=== PATIENT | female | born 1990 | race Caucasian/White ===

== ENCOUNTER 2017-08-29 21:32 | Emergency (ER) | payer OTHER ==
[~2017-08-29 21:32] MED LIST: AMOX500T PO; Z.0.BCPILL PO; ZOFR4TAB3 SL
--- NOTE | 2017-08-29 22:46 | PD ---
HPI Chief Complaint Just did not feel good today Date Seen: August 29, 2017 Time Seen: 22:40 Travel History International Travel<30 Days: No Contact w/Intl Traveler<30Days: No Known Affected Area: No History of Present Illness HPI 27-year-old white female [address] Melton for care and presents complaining today of hot flashes and nausea with no vomiting, no bleeding, leakage, or contractions. The patient states she feels better now. NST is reactive no contractions Weeks Gestation: 36 Para: 0 : 2 History Obstetric History Obstetric History 1 early loss Social History Alcohol Use: No Tobacco Use: No Substance Abuse: No Allergies-Medications (Allergen,Severity, Reaction): Coded Allergies: No Known Allergies (Unverified , 05/30/14) Home Meds Active Scripts Ondansetron (Zofran ODT) 4 Mg Tab, 4 MG SL QID Y for NAUSEA OR VOMITING, #10 TAB FOR NAUSEA/VOMITING Prov:Chula Rodriguez MD 05/30/14 Reported Medications Amoxicillin (Amoxicillin) Unknown Strength Cap, PO TID, CAP 05/30/14 Miscellaneous ( Control Pills) Tab, 1 TAB PO HS, TAB 05/30/14 Review of Systems General / Constitutional: No: Fever, Weight Gain, Chills, Other Eyes: No: Diploplia, Blurred Vision, Visual changes, Pain, Photophobia HENT: No: Headaches, Vertigo, Lightheadedness Cardiovascular: No: Irregular Rhythm, Chest Pain or Discomfort, Palpitations, Tachycardia, Syncope, Varicosities, Edema, Cyanosis Respiratory: No: Cough, Short of Breath, Other Gastrointestinal: No: Nausea, Vomiting, Diarrhea Genitourinary: No: Decreased Urinary Output, Oliguria Musculoskeletal: No: Limited ROM, Weakness, Cramping, Edema, Pain Skin: No Rash, No Itching, No Dryness, No Lumps, No Change in Pigmentation, No Change in Nails, No Alopecia, No Lesions Neurologic: No: Weakness, Dizziness, Syncope, Focal Abnormalities, Coordination Problem, Headache, Slurred Speech, Seizures Psychiatric: No: Depression, Suicidal Ideations, Homicidal Ideation Endocrine: No: Heat Intolerance, Cold Intolerance, Polydipsia, Polyuria, Other Physical Exam Narrative GENERAL: Well-nourished, well-developed patient. SKIN: Warm and dry. HEAD: Normocephalic and atraumatic. EYES: No scleral icterus. No injection or drainage. ENT: No nasal drainage noted. Mucous membranes pink. Airway patent. NECK: Supple, trachea midline. No JVD. CARDIOVASCULAR: Regular rate and rhythm without murmurs, gallops, or rubs. RESPIRATORY: Breath sounds equal bilaterally. No accessory muscle use. BREASTS: Bilateral exam showed no masses , no retractions, no nipple discharge. ABDOMEN/GI: Abdomen soft, non-tender, bowel sounds present, no rebound, no guarding Gravid to [-36] weeks size Fundal Height: [-36] GENITOURINARY: External Genitalia: intact and normal in appearance Membranes: [intact ] Uterine Contractions: [none-] FHT's: Category: [1-] Baseline: [-133] Reactive: [R-] Variability: [-mod] Decels: [-0] EXTREMITIES: No cyanosis or edema. BACK: Nontender without obvious deformity. No CVA tenderness. NEUROLOGICAL: Awake and alert. Motor and sensory grossly within normal limits. Five out of 5 muscle strength in all muscle groups. Normal speech. Data Data Labs Urine dip on OB ED is negative MDM Interpretation(s) 27-year-old white female at 36 weeks who presents complaining of hot flashes and nausea today. She had no vomiting. She felt she describes a just not well at all for a while and then that resolved and now she feels okay, NST is reactive, no contractions seen. Urinalysis negative Plan Plan to discharge patient home to observation and she will hydrate at home, use Tylenol as needed and heating pad or hot bath for symptom relief. She is to follow-up with Dr. Melton for any more issues Diagnosis Diagnosis: Primary Impression: Malaise Additional Impressions: Hot flashes Nausea alone 36 weeks gestation of Disposition: 01 DISCHARGE HOME Condition: Stable Demetrius Chua II, MD August 29, 2017 22:46
== END 2017-08-29 23:07 | disposition home or self-care (01) ==
LOC: HOBED 21:32
DX: O26.893 Other specified pregnancy related conditions, third trimester (principal); R11.0 Nausea; Z3A.36 36 weeks gestation of pregnancy
CPT/HCPCS: 59025

== ENCOUNTER 2017-09-09 11:23 | Emergency (ER) | payer OTHER ==
[2017-09-09 12:07] LABS: BACTERIA, URINE OCC /hpf; BILIRUBIN, URINE NEG (NEG); BLOOD, URINE NEG (NEG); GLUCOSE,URINE NEG (NEG); KETONE, URINE NEG (NEG); NITRITE,URINE NEG (NEG); PH, URINE 5.5 (5.0-8.5); SQUAMOUS EPITHELIAL CELL URINE 15 /hpf (0-5); URINE COLOR YELLOW (YELLW/STRAW); URINE LEUKOCYTE ESTERASE MOD (NEG)
[2017-09-09 12:08] LABS: AUTOMATED NEUTROPHIL # 6.1 TH/MM3 (1.8-7.7); BASOPHIL % 0.2 % (0.0-2.0); EOSINOPHIL % 0.6 % (0.0-4.0); HEMATOCRIT 38.6 % (35.0-46.0); HEMOGLOBIN 13.3 GM/DL (11.6-15.3); LYMPH % 17.7 % (9.0-44.0); LYMPHOCYTE # 1.5 TH/MM3 (1.0-4.8); MEAN CELL VOLUME 89.5 FL (80.0-100.0); MEAN CORPUSCULAR HEMOGLOBIN 30.8 PG (27.0-34.0); MEAN CORPUSCULAR HGB CONC 34.4 % (32.0-36.0); MEAN PLATELET VOLUME 7.8 FL (7.0-11.0); MONO % 7.1 % (0.0-8.0); MONOCYTE # 0.6 TH/MM3 (0-0.9); NEUT % 74.4 % (16.0-70.0); PLATELET COUNT 263 TH/MM3 (150-450); RED BLOOD COUNT 4.31 MIL/MM3 (4.00-5.30); RED CELL DISTRIBUTION WIDTH 13.3 % (11.6-17.2); WHITE BLOOD COUNT 8.2 TH/MM3 (4.0-11.0)
[2017-09-09 12:23] LABS: ALBUMIN 2.8 GM/DL (3.4-5.0); AST (GOT) 17 U/L (15-37); BICARBONATE 20.2 MEQ/L (21.0-32.0); BLOOD UREA NITROGEN 9 MG/DL (7-18); CHLORIDE 107 MEQ/L (98-107); CREATININE 0.82 MG/DL (0.50-1.00); GLOMERULAR FILTRATION RATE 85 ML/MIN (>89); GLUCOSE,RANDOM 108 MG/DL (74-106); SODIUM (NA) 137 MEQ/L (136-145)
[2017-09-09 12:24] LABS: ALT (GPT) 25 U/L (10-53)
[2017-09-09 12:27] LABS: ALKALINE PHOSPHATASE 132 U/L (45-117); TOTAL BILIRUBIN ADULT 0.4 MG/DL (0.2-1.0); TOTAL PROTEIN 6.7 GM/DL (6.4-8.2)
--- NOTE | 2017-09-09 13:18 | PD ---
HPI Chief Complaint hypertension in office Date Seen: September 09, 2017 Time Seen: 13:00 Travel History International Travel<30 Days: No Contact w/Intl Traveler<30Days: No Known Affected Area: No History of Present Illness HPI 27 yo at 37 6/7 weeks with BP in office of 140/100 no PRAKASH or visual disturbance. She is doing well and has had good PNC Weeks Gestation: 37 Para: 0 : 1 Last Menstrual Period: September 09, 2017 History Past Medical History Medical History: Denies Significant Hx Past Surgical History Surgical History: No Previous Surgery Family History Family History: Negative Social History Alcohol Use: No Tobacco Use: No Substance Abuse: No Allergies-Medications (Allergen,Severity, Reaction): Coded Allergies: No Known Allergies (Unverified , 05/30/14) Home Meds Active Scripts Ondansetron (Zofran ODT) 4 Mg Tab, 4 MG SL QID Y for NAUSEA OR VOMITING, #10 TAB FOR NAUSEA/VOMITING Prov:Chula Rodriguez MD 05/30/14 Reported Medications Amoxicillin (Amoxicillin) Unknown Strength Cap, PO TID, CAP 05/30/14 Miscellaneous ( Control Pills) Tab, 1 TAB PO HS, TAB 05/30/14 Review of Systems Except as stated in HPI: all other systems reviewed are Neg Physical Exam Narrative GENERAL: Well-nourished, well-developed patient. SKIN: Warm and dry. HEAD: Normocephalic and atraumatic. EYES: No scleral icterus. No injection or drainage. ENT: No nasal drainage noted. Mucous membranes pink. Airway patent. NECK: Supple, trachea midline. No JVD. CARDIOVASCULAR: Regular rate and rhythm without murmurs, gallops, or rubs. RESPIRATORY: Breath sounds equal bilaterally. No accessory muscle use. BREASTS: Bilateral exam showed no masses , no retractions, no nipple discharge. ABDOMEN/GI: Abdomen soft, non-tender, bowel sounds present, no rebound, no guarding Gravid to 37 weeks size Fundal Height: [-] GENITOURINARY: External Genitalia: intact and normal in appearance BUS glands: [-] Cervix: [-] Dilatation: ft Effacement: [-] Station: -2 Presentation: [-] Membranes: [intact Uterine Contractions: [-] FHT's: Category: 1 Baseline: [-] Reactive: [-] Variability: [-] Decels: [-] EXTREMITIES: No cyanosis or edema. BACK: Nontender without obvious deformity. No CVA tenderness. NEUROLOGICAL: Awake and alert. Motor and sensory grossly within normal limits. Five out of 5 muscle strength in all muscle groups. Normal speech. Data Data Vital Signs Reviewed: Yes Orders Orders Complete Blood Count With Diff (09/09/17 11:53) Comprehensive Metabolic Panel (09/09/17 11:53) Urinalysis - C+S If Indicated (09/09/17 11:53) Group B Strep: Negative Labs Laboratory Tests Test 09/09/17 11:48 White Blood Count 8.2 Red Blood Count 4.31 Hemoglobin 13.3 Hematocrit 38.6 Mean Corpuscular Volume 89.5 Mean Corpuscular Hemoglobin 30.8 Mean Corpuscular Hemoglobin Concent 34.4 Red Cell Distribution Width 13.3 Platelet Count 263 Mean Platelet Volume 7.8 Neutrophils (%) (Auto) 74.4 Lymphocytes (%) (Auto) 17.7 Monocytes (%) (Auto) 7.1 Eosinophils (%) (Auto) 0.6 Basophils (%) (Auto) 0.2 Neutrophils # (Auto) 6.1 Lymphocytes # (Auto) 1.5 Monocytes # (Auto) 0.6 Eosinophils # (Auto) 0.0 Basophils # (Auto) 0.0 CBC Comment DIFF FINAL Differential Comment Urine Color YELLOW Urine Turbidity HAZY Urine pH 5.5 Urine Specific Bennett 1.023 Urine Protein TRACE Urine Glucose (UA) NEG Urine Ketones NEG Urine Occult Blood NEG Urine Nitrite NEG Urine Bilirubin NEG Urine Urobilinogen LESS THAN 2.0 Urine Leukocyte Esterase MOD Urine RBC 7 Urine WBC 4 Urine Squamous Epithelial Cells 15 Urine Bacteria OCC Microscopic Urinalysis Comment CULT NOT INDICATED Blood Urea Nitrogen 9 Creatinine 0.82 Random Glucose 108 Total Protein 6.7 Albumin 2.8 Calcium Level 9.0 Alkaline Phosphatase 132 Aspartate Amino Transf (AST/SGOT) 17 Alanine Aminotransferase (ALT/SGPT) 25 Total Bilirubin 0.4 Sodium Level 137 Potassium Level 3.7 Chloride Level 107 Carbon Dioxide Level 20.2 Anion Gap 10 Estimat Glomerular Filtration Rate 85 MDM Diagnosis Diagnosis: Primary Impression: 37 weeks gestation of Additional Impression: Hypertension Disposition: 01 DISCHARGE HOME Condition: Good Patient Instructions: General Instructions, Having Your Baby: The Labor Process (GEN), Movement (ED) Departure Forms: Tests/Procedures Naren Duckworth MD September 09, 2017 13:18
--- NOTE | 2017-09-09 13:19 | HHI.DCPOC ---
Discharge Care Plan Diagnosis: (1) 37 weeks gestation of Report Symptoms to Your Doctor -Temperature above 100.5 degrees -Redness, of incision or excessive or foul smelling drainage -Unusual pain or calf pain -Increased vaginal bleeding -Painful or difficulty urinating -Feelings of extreme sadness or anxiety after 2 weeks Goals to Promote Your Health * To prevent worsening of your condition and complications * To maintain your health at the optimal level Directions to Meet Your Goals Take your medications as prescribed Follow your dietary instruction Follow activity as directed Ensure plenty of rest for recovery Drink fluids for hydration Keep your appointments as scheduled Take your immunizations and boosters as scheduled If your symptoms worsen call your PCP, if no PCP go to Urgent Care Center or Emergency Room Smoking is Dangerous to Your Health. Avoid second hand smoke Call the 24-hour crisis hotline for domestic abuse at Naren Duckworth MD September 09, 2017 13:19
== END 2017-09-09 15:00 | disposition home or self-care (01) ==
LOC: HOBED 11:23
DX: O16.3 Unspecified maternal hypertension, third trimester (principal); Z3A.37 37 weeks gestation of pregnancy
CPT/HCPCS: 36415; 59025; 80053; 81001; 85025

== ENCOUNTER 2017-09-23 08:56 | Inpatient (IN) | payer OTHER ==
[~2017-09-23] VITALS: Ht 175.3 cm; Wt 100.0 kg
[2017-09-23] MEDS ORDERED: LACTATED RINGER'S 1000 ML INJ 1,000 ML IV SCH (09:14)
[2017-09-23] MEDS ORDERED: LACTATED RINGER'S 1000 ML INJ 1,000 ML IV PRN (09:14)
[2017-09-23] MEDS ORDERED: LIDOCAINE HCL 1% 50 ML VIAL I-DERMAL PRN (09:15)
[2017-09-23] MEDS ORDERED: OXYTOCIN 30 UNITS-500ML PREMIX 500 ML IV PRN (09:15)
[2017-09-23] MEDS ORDERED: SODIUM CHLORID 0.9% 500 ML INJ 500 ML IV PRN (09:15)
[2017-09-23] MEDS ORDERED: OXYTOCIN 30 UNITS-500ML PREMIX 500 ML IV ONE (09:15)
[2017-09-23] MEDS ORDERED: MINERAL OIL 10 ML VIAL TOPICAL PRN (09:15)
[2017-09-23] MEDS ORDERED: LIDOCAINE HCL 1% 50 ML VIAL INFIL PRN (09:15)
[2017-09-23] MEDS ORDERED: CITRIC ACID-SODIUM CITRATE LIQ 30 ML UDC PO SCH (09:15)
[2017-09-23] MEDS ORDERED: SODIUM CHLOR 0.9% 1000 ML INJ 1,000 ML IV PRN (09:34)
[2017-09-23 10:12] LABS: AUTOMATED NEUTROPHIL # 6.1 TH/MM3 (1.8-7.7); BASOPHIL % 0.4 % (0.0-2.0); EOSINOPHIL % 0.5 % (0.0-4.0); HEMATOCRIT 37.2 % (35.0-46.0); HEMOGLOBIN 13.4 GM/DL (11.6-15.3); LYMPH % 19.7 % (9.0-44.0); LYMPHOCYTE # 1.6 TH/MM3 (1.0-4.8); MEAN CELL VOLUME 88.6 FL (80.0-100.0); MEAN CORPUSCULAR HEMOGLOBIN 31.9 PG (27.0-34.0); MEAN PLATELET VOLUME 8.4 FL (7.0-11.0); MONOCYTE # 0.6 TH/MM3 (0-0.9); NEUT % 72.4 % (16.0-70.0); PLATELET COUNT 249 TH/MM3 (150-450); RED BLOOD COUNT 4.19 MIL/MM3 (4.00-5.30); RED CELL DISTRIBUTION WIDTH 13.2 % (11.6-17.2); WHITE BLOOD COUNT 8.4 TH/MM3 (4.0-11.0)
[2017-09-23 10:23] LABS: AMORPHOUS SEDIMENT, URINE RARE; BACTERIA, URINE OCC /hpf; BILIRUBIN, URINE NEG (NEG); BLOOD, URINE NEG (NEG); GLUCOSE,URINE NEG (NEG); KETONE, URINE NEG (NEG); MUCUS URINE FEW /lpf (OCC); NITRITE,URINE NEG (NEG); PH, URINE 5.5 (5.0-8.5); SQUAMOUS EPITHELIAL CELL URINE 8 /hpf (0-5); TRANSITIONAL EPI CELLS, URINE <1 /hpf; URINE COLOR YELLOW (YELLW/STRAW); URINE LEUKOCYTE ESTERASE SMALL (NEG)
[2017-09-23] MEDS ORDERED: fentaNYL 2MCG-BUPIV 0.125% INJ 150 ML EPIDURAL ONE (14:29)
[2017-09-23] MEDS ORDERED: ePHEDrine/NS 25 MG/5 ML SYRINGE ONE (14:29)
[2017-09-23] MEDS ORDERED: LIDOCAINE 1.5%/EPINEPHrine 1:200,000 PF 5 ML AMP ONE (14:32)
[2017-09-23] MEDS ORDERED: ePHEDrine/NS 25 MG/5 ML SYRINGE IV PUSH PRN (15:45)
[2017-09-23] MEDS ORDERED: NO SYSTEM NARCOTICS PRN (15:45)
[2017-09-23] MEDS ORDERED: fentaNYL 2MCG-BUPIV 0.125% 150 ML EPIDURAL PRN (15:45)
[2017-09-23] MEDS ORDERED: DO NOT ADMINISTER ANTICOAGULANTS PRN (15:45)
[2017-09-23] MEDS ORDERED: DIPHTH/TETANUS/ACEL PERTUSSIS (BOOSTER) 0.5 ML VIAL/PFS IM ONE (16:00)
--- NOTE | 2017-09-23 17:14 | HHI.HP ---
HPI Chief Complaint induction at 39 weeks Date Seen: Sep 23, 2017 Time Seen: 09:00 Travel History International Travel<30 Days: No Contact w/Intl Traveler<30Days: No Known Affected Area: No History of Present Illness HPI 27 yo WF here for induction. She is 3 cm and ok with AROM and pitocin Weeks Gestation: 39 Para: 0 : 1 History Past Medical History Medical History: Denies Significant Hx Past Surgical History Surgical History: No Previous Surgery Family History Family History: Social History Alcohol Use: No Tobacco Use: No Substance Abuse: No Allergies-Medications (Allergen,Severity, Reaction): Coded Allergies: No Known Allergies (Unverified Allergy, Unknown, 09/23/17) Home Meds Active Scripts Ondansetron (Zofran ODT) 4 Mg Tab, 4 MG SL QID Y for NAUSEA OR VOMITING, #10 TAB FOR NAUSEA/VOMITING Prov:Chula Rodriguez MD 05/30/14 Reported Medications Amoxicillin (Amoxicillin) Unknown Strength Cap, PO TID, CAP 05/30/14 Miscellaneous ( Control Pills) Tab, 1 TAB PO HS, TAB 05/30/14 Review of Systems Except as stated in HPI: all other systems reviewed are Neg Physical Exam Narrative GENERAL: Well-nourished, well-developed patient. SKIN: Warm and dry. HEAD: Normocephalic and atraumatic. EYES: No scleral icterus. No injection or drainage. ENT: No nasal drainage noted. Mucous membranes pink. Airway patent. NECK: Supple, trachea midline. No JVD. CARDIOVASCULAR: Regular rate and rhythm without murmurs, gallops, or rubs. RESPIRATORY: Breath sounds equal bilaterally. No accessory muscle use. BREASTS: Bilateral exam showed no masses , no retractions, no nipple discharge. ABDOMEN/GI: Abdomen soft, non-tender, bowel sounds present, no rebound, no guarding Gravid to 39 weeks size Fundal Height: [-] GENITOURINARY: External Genitalia: intact and normal in appearance BUS glands: [-] Cervix: [-] Dilatation: 3 Effacement: [-] Station: [-] Presentation: vtx Membranes: Uterine Contractions: [-] FHT's: Category: 1 Baseline: [-] Reactive: [-] Variability: [-] Decels: [-] EXTREMITIES: No cyanosis or edema. BACK: Nontender without obvious deformity. No CVA tenderness. NEUROLOGICAL: Awake and alert. Motor and sensory grossly within normal limits. Five out of 5 muscle strength in all muscle groups. Normal speech. Caprini VTE Risk Assessment Caprini VTE Risk Assessment: No/Low Risk (score <= 1) Caprini Risk Assessment Model Point Value = 1 Point Value = 2 Point Value = 3 Point Value = 5 Age 41-60 Minor surgery BMI > 25 kg/m2 Swollen legs Varicose veins or History of unexplained or recurrent spontaneous Oral contraceptives or hormone replacement Sepsis (< 1 month) Serious lung disease, including pneumonia (< 1 month) Abnormal pulmonary function Acute myocardial infarction Congestive heart failure (< 1 month) History of inflammatory bowel disease Medical patient at bed rest Age 61-74 Arthroscopic surgery Major open surgery (> 45 min) Laparoscopic surgery (> 45 min) Malignancy Confined to bed (> 72 hours) Immobilizing plaster cast Central venous access Age >= 75 History of VTE Family history of VTE Factor V Leiden Prothrombin [id number] Lupus anticoagulant Anticardiolipin antibodies Elevated serum homocysteine Heparin-induced thrombocytopenia Other congenital or acquired thrombophilia Stroke (< 1 month) Elective arthroplasty Hip, pelvis, or leg fracture Acute spinal cord injury (< 1 month) Prophylaxis Regimen Total Risk Factor Score Risk Level Prophylaxis Regimen 0-1 Low Early ambulation 2 Moderate Order ONE of the following: *Sequential Compression Device (SCD) *Heparin 5000 units SQ BID 3-4 Higher Order ONE of the following medications: *Heparin 5000 units SQ TID *Enoxaparin/Lovenox 40 mg SQ daily (WT < 150 kg, CrCl > 30 mL/min) *Enoxaparin/Lovenox 30 mg SQ daily (WT < 150 kg, CrCl > 10-29 mL/min) *Enoxaparin/Lovenox 30 mg SQ BID (WT < 150 kg, CrCl > 30 mL/min) AND/OR *Sequential Compression Device (SCD) 5 or more Highest Order ONE of the following medications: *Heparin 5000 units SQ TID (Preferred with Epidurals) *Enoxaparin/Lovenox 40 mg SQ daily (WT < 150 kg, CrCl > 30 mL/min) *Enoxaparin/Lovenox 30 mg SQ daily (WT < 150 kg, CrCl > 10-29 mL/min) *Enoxaparin/Lovenox 30 mg SQ BID (WT < 150 kg, CrCl > 30 mL/min) AND *Sequential Compression Device (SCD) Data Data Vital Signs Reviewed: Yes Orders Orders Admit To Inpatient (09/23/17 ) Code Status (09/23/17 09:14) Vital Signs (Adult) .Per protocol (09/23/17 09:14) Heart (09/23/17 09:14) Amnioinfusion (09/23/17 09:14) Urinary Catheter Management .ONCE (09/23/17 09:14) Lactated Ringer's 1000 Ml Inj (Lr 1000 M (09/23/17 09:14) Lactated Ringer's 1000 Ml Inj (Lr 1000 M (09/23/17 09:14) Sodium Chlorid 0.9% 500 Ml Inj (Ns 500 M (09/23/17 09:15) Sodium Chlor 0.9% 1000 Ml Inj (Ns 1000 M (09/23/17 09:34) Lidocaine 1% Inj (50 Ml) (Xylocaine 1% I (09/23/17 09:15) Citric Acid-Sodium Citrate Liq (Bicitra (09/23/17 09:15) Fentanyl Inj (Fentanyl Inj) (09/23/17 09:15) Fentanyl Inj (Fentanyl Inj) (09/23/17 09:15) Complete Blood Count With Diff (09/23/17 09:14) Hold Clot (09/23/17 09:14) Abo/Rh Blood Type (09/23/17 09:14) Urinalysis - C+S If Indicated (09/23/17 09:14) Ob/Psych Drug Screen, Urine (09/23/17 09:14) Resp Oxygen Non Rebreathe Mask (09/23/17 ) ^ Epidural / Intrathecal Infus (09/23/17 09:14) Oxytocin 30 Units-500ml Premix (Pitocin (09/23/17 09:15) Lidocaine 1% Inj (50 Ml) (Xylocaine 1% I (09/23/17 09:15) Light Mineral Oil (Muri-Lube Oil) (09/23/17 09:15) Inpatient Certification (09/23/17 ) Specimen To Be Collected PRN (09/23/17 09:14) Specimen To Be Collected PRN (09/23/17 09:14) ^ Non Stress Test (09/23/17 09:14) Response To Medication .Post New Med Administration, Reaction (09/23/17 09:14) ^ Discontinue Medication (09/23/17 09:14) Oxytocin 30 Units-500ml Premix (Pitocin (09/23/17 09:15) Diet Clear Liquid (09/23/17 Lunch) Fentanyl 2mcg-Bupiv 0.125% Inj (Fentanyl (09/23/17 14:29) Ephedrine/Ns 25 Mg/5 Ml Syr (Ephedrine/N (09/23/17 14:29) Lido-Epi Pf 1.5%-1:200,000 Inj (Xylocain (09/23/17 14:32) ^ Place On Chart (09/23/17 ) ^ Medication Indications (09/23/17 ) Consent (09/23/17 ) ^ No Systemic Narcotics (09/23/17 ) ^ Call Anesthesiologist (09/23/17 ) ^ Discontinue Epidural Cathete (09/23/17 ) Anticoagulant Alert (09/23/17 ) ^ Epidural Alert (09/23/17 ) Nursing Information ([facility] Nursing Inform (09/23/17 15:45) Nursing Information ([facility] Nursing Inform (09/23/17 15:45) Fentanyl Inj (Fentanyl Inj) (09/23/17 15:45) Fentanyl 2mcg-Bupiv 0.125% Inj (Fentanyl (09/23/17 15:45) Ephedrine/Ns 25 Mg/5 Ml Syr (Ephedrine/N (09/23/17 15:45) Group B Strep: Negative Labs Laboratory Tests Test 09/23/17 09:45 White Blood Count 8.4 Red Blood Count 4.19 Hemoglobin 13.4 Hematocrit 37.2 Mean Corpuscular Volume 88.6 Mean Corpuscular Hemoglobin 31.9 Mean Corpuscular Hemoglobin Concent 36.0 Red Cell Distribution Width 13.2 Platelet Count 249 Mean Platelet Volume 8.4 Neutrophils (%) (Auto) 72.4 Lymphocytes (%) (Auto) 19.7 Monocytes (%) (Auto) 7.0 Eosinophils (%) (Auto) 0.5 Basophils (%) (Auto) 0.4 Neutrophils # (Auto) 6.1 Lymphocytes # (Auto) 1.6 Monocytes # (Auto) 0.6 Eosinophils # (Auto) 0.0 Basophils # (Auto) 0.0 CBC Comment AUTO DIFF Differential Comment AUTO DIFF CONFIRMED Urine Color YELLOW Urine Turbidity HAZY Urine pH 5.5 Urine Specific Lin[place] 1.027 Urine Protein TRACE Urine Glucose (UA) NEG Urine Ketones NEG Urine Occult Blood NEG Urine Nitrite NEG Urine Bilirubin NEG Urine Urobilinogen LESS THAN 2.0 Urine Leukocyte Esterase SMALL Urine RBC 2 Urine WBC 5 Urine Squamous Epithelial Cells 8 Urine Transitional Epithelial Cells <1 Urine Amorphous Sediment RARE Urine Bacteria OCC Urine Mucus FEW Microscopic Urinalysis Comment CULT NOT INDICATED Urine Opiates Screen NEG Urine Barbiturates Screen NEG Urine Amphetamines Screen NEG Urine Benzodiazepines Screen NEG Urine Cocaine Screen NEG Urine Cannabinoids Screen NEG Assessment/Plan Problem List: (1) 39 weeks gestation of ICD Codes: Z3A.39 - 39 weeks gestation of Assessment and Plan induction with favorable Naren Rodriguez MD Sep 23, 2017 17:14
[2017-09-23] MEDS ORDERED: LIDOCAINE HCL 1% PF 30 ML VIAL ONE (20:11)
--- NOTE | 2017-09-23 20:51 | PD.OB.DELI ---
Weeks gestation: 39 Gest age assessed date: Sep 23, 2017 Gest age assessed time: 09:00 Pt started active labor?: Yes Active labor start date: Sep 23, 2017 Active labor start time: 09:00 Medical induction of labor?: No Artificial rupture of membrane: Yes Artificial ROM date: Sep 23, 2017 Artifical ROM time: 13:00 Anesthesia: Epidural Episiotomy: None Vaginal Delivery: Normal, Spontaneous Presentation: Occiput anterior Nuchal Cord: None Delayed cord clamping (45 sec): Yes Infant: Female, Single Delivery date: Sep 23, 2017 Delivery time: 20:30 One Minute : 9 Five Minute : 9 Placenta: Spontaneous delivery, Intact Laceration: Vaginal laceration, 2 deg Repair: Chromic running Estimated blood loss: 300 Naren Duckworth MD Sep 23, 2017 20:51
[2017-09-23] MEDS ORDERED: ALUMINUM/MAGNESIUM/SIMETH 30 ML CUP PO PRN (21:00)
[2017-09-23] MEDS ORDERED: ZOLPIDEM TARTRATE 5 MG TAB PO PRN (21:00)
[2017-09-23] MEDS ORDERED: SODIUM CHLORIDE 0.9% FLUSH 10 ML FLUSH IV FLUSH SCH (21:00)
[2017-09-23] MEDS ORDERED: SODIUM CHLORIDE 0.9% FLUSH 10 ML FLUSH IV FLUSH PRN (21:00)
[2017-09-23] MEDS ORDERED: ONDANSETRON ODT 4 MG TAB PO PRN (21:00)
[2017-09-23] MEDS ORDERED: OXYTOCIN 30 UNITS-500ML PREMIX 500 ML IV SCH (21:00)
[2017-09-23] MEDS: BENZOCAINE 20% TOPICAL SPRAY 60 ML CAN TOPICAL PRN (22:50)
[2017-09-23] MEDS: WITCH HAZEL 50%/GLYCERIN 12.5% 40 PAD JAR TOPICAL PRN (22:50)
[2017-09-24] MEDS: IBUPROFEN 800 MG TAB PO PRN ×3 (04:28→20:44)
--- NOTE | 2017-09-24 07:55 | HHI.OB ---
Subjective Post Day: 1 Remarks doing well Objective Vitals/I&O Intake & Output 09/24/17 09/24/17 07:00 19:00 Intake Total 500 ml Balance 500 ml Intake IV Total 500 ml Objective Remarks GENERAL: Well-nourished, well-developed patient. . ABDOMEN/GI: Abdomen soft, non-tender. Fundus: Firm, non-tender at umbilicus. GENITOURINARY: Light to moderate bleeding. EXTREMITIES: No cyanosis or edema, non-tender, without signs of DVT. Medications and IVs Current Medications Medications (Trade) Dose Ordered Sig/Carmen Route Start Time Stop Time Status Last Admin ([facility] Nursing Information) No systemic narcotics to be given except... UNSCH PRN .XX 09/23/17 15:45 09/24/17 15:44 ([facility] Nursing Information) DO NOT ADMINISTER ANY ANTICOAGUL... UNSCH PRN .XX 09/23/17 15:45 09/24/17 15:44 (NS Flush) 2 ml BID IV FLUSH 09/23/17 21:00 (NS Flush) 2 ml UNSCH PRN IV FLUSH 09/23/17 21:00 (Tylenol) 650 mg Q4H PRN PO 09/23/17 21:00 (Motrin) 800 mg Q8H PRN PO 09/23/17 21:00 09/24/17 04:28 (Americaine 20% Top Spr) 1 spray Q4H PRN TOPICAL 09/23/17 21:00 09/23/17 22:50 (Tucks Pads) 1 applic QID PRN TOPICAL 09/23/17 21:00 09/23/17 22:50 (Chaya-Colace) 2 tab Q12H PRN PO 09/23/17 21:00 (Ambien) 5 mg HS PRN PO 09/23/17 21:00 (M-M-R Ii Inj) 0.5 ml ONCE ONCE SQ 09/24/17 16:00 09/24/17 16:01 (Mag-Al Plus Susp Liq) 15 ml Q8H PRN PO 09/23/17 21:00 (Zofran Odt) 4 mg Q6H PRN PO 09/23/17 21:00 (Boostrix Inj) 0.5 ml ONCE ONCE IM 09/24/17 16:00 09/24/17 16:01 Assessment/Plan Problem List: (1) 39 weeks gestation of ICD Codes: Z3A.39 - 39 weeks gestation of (2) Spontaneous vaginal delivery ICD Codes: O80 - Encounter for full-term uncomplicated delivery Assessment and Plan doing well PP normal locNaren Del Toro MD Sep 24, 2017 07:55
--- NOTE | 2017-09-24 07:56 | HHI.DCPOC ---
Discharge Care Plan Diagnosis: (1) Spontaneous vaginal delivery Report Symptoms to Your Doctor -Temperature above 100.5 degrees -Redness, of incision or excessive or foul smelling drainage -Unusual pain or calf pain -Increased vaginal bleeding -Painful or difficulty urinating -Feelings of extreme sadness or anxiety after 2 weeks Goals to Promote Your Health * To prevent worsening of your condition and complications * To maintain your health at the optimal level Directions to Meet Your Goals Take your medications as prescribed Follow your dietary instruction Follow activity as directed Ensure plenty of rest for recovery Drink fluids for hydration Keep your appointments as scheduled Take your immunizations and boosters as scheduled If your symptoms worsen call your PCP, if no PCP go to Urgent Care Center or Emergency Room Smoking is Dangerous to Your Health. Avoid second hand smoke Call the 24-hour crisis hotline for domestic abuse at Naren Duckworth MD Sep 24, 2017 07:56
[2017-09-24] MEDS ORDERED: PERC5TAB12 PO (07:57)
[2017-09-24] MEDS: ACETAMINOPHEN 325 MG TAB PO PRN ×2 (11:09→23:48)
[2017-09-24] MEDS ORDERED: MEASLES, MUMPS, RUBELLA VACCINE 0.5 ML VIAL SQ ONE (16:00)
[2017-09-24] MEDS ORDERED: DIPHTH/TETANUS/ACEL PERTUSSIS (BOOSTER) 0.5 ML VIAL/PFS IM ONE (16:00)
[2017-09-24 20:10] VITALS: BP 114/62; PULSE 74; RESP 17; TEMP 98.9
[2017-09-24] MEDS: WITCH HAZEL 50%/GLYCERIN 12.5% 40 PAD JAR TOPICAL PRN (20:43)
[2017-09-24] MEDS: DOCUSATE SODIUM 50 MG/SENNA 8.6 MG TAB PO PRN (20:43)
[2017-09-25] MEDS: IBUPROFEN 800 MG TAB PO PRN (06:20)
[2017-09-25] MEDS ORDERED: DIPHTH/TETANUS/ACEL PERTUSSIS (BOOSTER) 0.5 ML VIAL/PFS IM ONE (08:30)
--- NOTE | 2017-09-25 11:11 | HHI.OB ---
Subjective Post Day: 2 Remarks doing well Objective Vitals/I&O Vital Signs Date Time Temp Pulse Resp B/P (MAP) Pulse Ox O2 Delivery O2 Flow Rate FiO2 09/24/17 20:10 98.9 74 17 114/62 (79) Objective Remarks GENERAL: Well-nourished, well-developed patient. . ABDOMEN/GI: Abdomen soft, non-tender. Fundus: Firm, non-tender at umbilicus. GENITOURINARY: Light to moderate bleeding. EXTREMITIES: No cyanosis or edema, non-tender, without signs of DVT. Medications and IVs Current Medications Medications (Trade) Dose Ordered Sig/Carmen Route Start Time Stop Time Status Last Admin (NS Flush) 2 ml BID IV FLUSH 09/23/17 21:00 (NS Flush) 2 ml UNSCH PRN IV FLUSH 09/23/17 21:00 (Tylenol) 650 mg Q4H PRN PO 09/23/17 21:00 09/24/17 23:48 (Motrin) 800 mg Q8H PRN PO 09/23/17 21:00 09/25/17 06:20 (Americaine 20% Top Spr) 1 spray Q4H PRN TOPICAL 09/23/17 21:00 09/23/17 22:50 (Tucks Pads) 1 applic QID PRN TOPICAL 09/23/17 21:00 09/24/17 20:43 (Chaya-Colace) 2 tab Q12H PRN PO 09/23/17 21:00 09/24/17 20:43 (Ambien) 5 mg HS PRN PO 09/23/17 21:00 (Mag-Al Plus Susp Liq) 15 ml Q8H PRN PO 09/23/17 21:00 (Zofran Odt) 4 mg Q6H PRN PO 09/23/17 21:00 Assessment/Plan Problem List: (1) 39 weeks gestation of ICD Codes: Z3A.39 - 39 weeks gestation of (2) Spontaneous vaginal delivery ICD Codes: O80 - Encounter for full-term uncomplicated delivery Assessment and Plan doing well PP normal Naren Alfonso MD Sep 25, 2017 11:11
--- NOTE | 2017-09-25 11:13 | HHI.DS ---
Admission Date Sep 23, 2017 at 08:56 Discharge Date: Sep 25, 2017 Admitting Diagnosis Diagnosis: (1) Spontaneous vaginal delivery Diagnosis: Principal ICD Codes: O80 - Encounter for full-term uncomplicated delivery Delivery Date: Sep 23, 2017 Vaginal Delivery: Normal, Spontaneous : Female, Single Brief History 27 yo WF here for induction. She is 3 cm and ok with AROM and pitocin Hospital Course doing well ready for DC home Pt Condition on Discharge: Good Discharge Disposition: Discharge Home Discharge Instructions Diet Instructions: As Tolerated, No Restrictions Activities You Can Perform: Pelvic Rest Activities to Avoid: Driving for 24 hrs Follow up Referrals: HAND PACKAGER - 2 Weeks @ [facility] with Naren Duckworth MD New Medications: Oxycodone-Acetaminophen (Percocet) 5-325 mg Tab 1-2 TAB PO Q4H PRN for PAIN, #20 TAB 0 Refills Discontinued Medications: Amoxicillin (Amoxicillin) Unknown Strength Cap Unknown Dose PO TID, CAP Miscellaneous ( Control Pills) Tab 1 TAB PO HS, TAB Ondansetron (Zofran ODT) 4 Mg Tab 4 MG SL QID PRN for NAUSEA OR VOMITING, #10 TAB FOR NAUSEA/VOMITING Naren Duckworth MD Sep 25, 2017 11:13
[2017-09-25] MEDS: DOCUSATE SODIUM 50 MG/SENNA 8.6 MG TAB PO PRN (12:36)
[2017-09-25] MEDS: ACETAMINOPHEN 325 MG TAB PO PRN (12:36)
[2017-09-25] MEDS: BENZOCAINE 20% TOPICAL SPRAY 60 ML CAN TOPICAL PRN (12:37)
[2017-09-25] MEDS: WITCH HAZEL 50%/GLYCERIN 12.5% 40 PAD JAR TOPICAL PRN (12:37)
== END 2017-09-25 13:49 | disposition home or self-care (01) | DRG 775 ==
LOC: H2EB 08:56 → H1EA 23:02
PROVIDERS: ADMIT Obstetrics & Gynecology; ATTEND Obstetrics & Gynecology
PROC: 10E0XZZ Delivery of Products of Conception, External Approach (ICD-10-PCS; principal; 2017-09-23)
PROC: 0KQM0ZZ Repair Perineum Muscle, Open Approach (ICD-10-PCS; 2017-09-23)
PROC: 3E0S3BZ Introduction of Anesthetic Agent into Epidural Space, Percutaneous Approach (ICD-10-PCS; 2017-09-23)
DX: O70.1 Second degree perineal laceration during delivery (principal); Z37.0 Single live birth; Z3A.39 39 weeks gestation of pregnancy
CPT/HCPCS: 59025; 80307; 81001; 85025; 86900; 86901; 90715; G0481; J2590; J7120